=== PATIENT | female | born 1965 | race Two or more races ===

== ENCOUNTER 2023-01-12 20:58 | Emergency (ER) | payer OTHER ==
[~2023-01-12] VITALS: Ht 160 cm; Wt 79.1 kg
[2023-01-12 21:30] VITALS: BP 149/84; PULSE 69; RESP 18; TEMP 97.8; O2SAT 98
== END 2023-01-12 22:58 | disposition home or self-care (01) ==
LOC: ER 21:00
DX: M79.621 Pain in right upper arm (principal); Z88.5 Allergy status to narcotic agent
CPT/HCPCS: 73200